=== PATIENT | female | born 1950 | race Caucasian/White ===

== ENCOUNTER 2021-07-12 19:04 | Inpatient (IN) | payer MEDICARE, OTHER ==
[~2021-07-12] VITALS: Ht 160 cm; Wt 41.7 kg
--- NOTE | 2021-07-12 19:15 | NUR ---
PATIENT CAME ONLY WITH 5150 HOLD. NO OTHER PAPER WORKS, SUCH HOME MEDICATION AND HX CAME WITH PATIENT.
--- NOTE | 2021-07-12 19:49 | NUR ---
LAB AT BEDSIDE.
[2021-07-12 20:12] LABS: HEMATOCRIT 37.6 % (31.2-41.9); MEAN CORPUSCULAR HEMOGLOBIN 31.4 uug (24.7-32.8); MEAN CORPUSCULAR VOLUME 89.7 fL (75.5-95.3); PLATELET COUNT (AUTO) 130 K/uL (179-408)
[2021-07-12 20:14] LABS: CREATININE 0.7 mg/dL (0.6-1.3); POTASSIUM 3.5 mmol/L (3.5-5.1)
[2021-07-12 20:20] LABS: BILIRUBIN,DIRECT 0.1 mg/dL (0.0-0.2); TOTAL PROTEIN, SERUM 6.6 g/dL (6.4-8.2)
--- NOTE | 2021-07-12 20:53 | NUR ---
PT AMBULATED TO RESTROOM, ABLE TO FOLLOW COMMANDS. NOTED TO BE CALM AND COOPERATIVE.
[2021-07-12 21:06] LABS: *BILIRUBIN,URIN NEGATIVE (NEGATIVE); *CLARITY,URINE CLEAR (CLEAR); *COLOR,URINE YELLOW (YELLOW); *KETONES,URINE TRACE (NEGATIVE); *UROBILINOGEN,URINE 0.2 E.U./dl (NORMAL); LEUKOCYTE ESTERASE ,URINE 2+ (NEGATIVE); NITRITE, URINE NEGATIVE (NEGATIVE); UGLUCOSE NEGATIVE (NEGATIVE)
[2021-07-12 21:22] LABS: *BLOOD, URINE TRACE (NEGATIVE)
--- NOTE | 2021-07-12 21:40 | NUR ---
GAVE REPORT TO HAYDER SOL.
[2021-07-12] MEDS ORDERED: MAG HYDROX/AL HYDROX/SIMETH 30 ML LIQUID UDC PO PRN (22:30)
[2021-07-12] MEDS ORDERED: MAGNESIUM HYDROXIDE 30 ML LIQUID UDC PO PRN (22:30)
[2021-07-12] MEDS ORDERED: BLOOD SUGAR DIAGNOSTIC 1 EACH STRIP VI ONE (22:30)
[2021-07-12 22:40] LABS: RBC,URINE 0-3 /HPF (0-3); SQUAMOUS EPITHELIAL CELL,UR FEW /HPF (NONE SEEN)
[2021-07-12 22:41] LABS: BACTERIA,URINE FEW /HPF (NONE SEEN)
[2021-07-12 22:45] VITALS: BP 100/27
--- NOTE | 2021-07-12 23:00 | NUR ---
Pt. admitted to MHU , under care of Dr. AMBROCIO AND LIZ Belongs List completed
[2021-07-12 23:08] VITALS: BP 99/32
--- NOTE | 2021-07-12 23:55 | NUR ---
ADMISSION NOTE: AT APPROX. 2250, ADMITTED 71 YEARS OLD FEMALE TO [facility] ON A 5150 HOLD FOR DTS AND GD. PER HOLD, PATIENT LIVES AT HER HOME. SHE WAS OBSERVED BY HER NEIGHBORS THAT SHE WAS STANDING OUTSIDE HER HOME FOR PROLONGED PERIODS OF TIMES OF TIMES REGARDLESS OF THE INCLEMENT WEATHER AND RAIN. SHE WAS OBSERVED WITH ONLY "NIGHT CLOTHES" AND SHE DOES NOT VERBALLY COMMUNICATE. PATIENT HAS A HISTORY OF PREVIOUS PSYCHIATRIC HOSPITALIZATION IN 2015 AND 2019. UPON ADMISSION, PATIENT IS NOT SPEAKING AND NOT ANSWERING ANY QUESTIONS; HOWEVER, SHE DOES FOLLOW DIRECTIONS. FACE TO FACE ASSESSMENT WAS DONE, ADVISEMENT WAS GIVEN, WELL HER BOOKLET FOR PATIENT RIGHTS TO MENTAL HEALTH FACILITIES. PATIENT REFLECTS WHAT IS WRITTEN ON THE HOLD. SHE REFUSED TO ANSWER ANY QUESTIONS AND SHE REMAINED MUTE. SKIN ASSESSMENT DONE. SKIN APPEARS INTACT. PATIENT WAS OFFERED SNACKS AND PO FLUIDS BUT SHE REFUSED. SON JOSE LUIS SHERIDAN WAS CONTACTED VIA PHONE CALL AT [phone]. PER SON, PATIENT IS ABLE TO SPEAK AND UNDERSTAND FLUENT [facility]. HE WAS ASKED TO BRING MEDICATION RECORDS AND MEDICAL HISTORY. HE STATED HE WILL CALL [facility] TO OBTAINED HER MEDICAL RECORDS AND WILL BRING TO UNIT TOMORROW. PATIENT'S HOLD WILL END ON 07/15/21 AT 1445. SHE IS UNDER THE CARE OF DR. AMBROCIO. WILL CONTINUE WITH Q15 MIN CHECKS.
[2021-07-13 07:30] VITALS: BP 90/46
[2021-07-13] MEDS: CEphaleXIN 500 MG CAPSULE PO SCH ×2 (08:20→17:04)
--- NOTE | 2021-07-13 08:27 | NUR ---
Firearms Report Supervisor [employer] completed and submitted a [employer] firearms report for 5150 grave disability certifications and a danger to herself. A copy of report has been placed in patient chart.
[2021-07-13] MEDS: OLANZAPINE ZYDIS 5 MG TAB.RAPDIS PO SCH ×2 (10:27→17:04)
[2021-07-13 11:10] LABS: *AMPHETAMINE, URINE NEGATIVE (NEGATIVE); *CANNABINOID, URINE NEGATIVE (NEGATIVE); *COCCAINE, URINE NEGATIVE (NEGATIVE); *OPIATE, URINE NEGATIVE (NEGATIVE); *PHENCYCLIDINE SCREEN,URINE NEGATIVE (NEGATIVE)
--- NOTE | 2021-07-13 12:01 | NUR ---
MIRYAM Initial Discharge Note Pt currently resides at [address] [place] [id number]. Pt is currently unable to communicate family contact or DPOA contact information, if available, for SW to contact regarding discharge plan. MIRYAM will continue to work with pt, family, and MD to ensure a safe and proper discharge plan.
[2021-07-13 16:00] VITALS: BP 106/34
--- NOTE | 2021-07-13 16:19 | NUR ---
Received patient sleeping in her room. A/O X 3 to person, place. Pt. affect is selective mute, withdrawn, isolative, cooperative. UA was collected this morning and sent to the lab. Compliant with medications. Self care. Continent. Reassurance given. Fall and safety precautions implemented.
[2021-07-13 19:59] VITALS: BP 90/45
[2021-07-13] MEDS: DIVALPROEX 125 MG TABLET.DR PO SCH (20:32)
[2021-07-13] MEDS: LORAZEPAM 1 MG TABLET PO PRN (23:01)
--- NOTE | 2021-07-14 05:04 | NUR ---
At the start of the shift , the patient was sitting on the edge of the bed , refusing to speak or make eye contact with staff. After a few hours ,the patient was willing to to sit in a chair at the station, eat food, drink fluids and took a shower. At that time the patient begun to speak. This patient is forgetful and confused. She believes she was suppose to be going home during the night and repeated this over and over. Frequent reassurance and reorientation were provided. A Front Wheel Walker was given for safety when ambulating. Continuing with the plan of care and providing for her needs. No acute distress at this time. The patient has been medication compliant. Safety Stratiges are in place.
[2021-07-14 07:30] VITALS: BP 104/52
[2021-07-14] MEDS: OLANZAPINE ZYDIS 5 MG TAB.RAPDIS PO SCH ×2 (08:46→16:45)
[2021-07-14] MEDS: DIVALPROEX 125 MG TABLET.DR PO SCH ×2 (08:46→20:06)
[2021-07-14] MEDS: CEphaleXIN 500 MG CAPSULE PO SCH ×2 (08:46→16:45)
[2021-07-14] MEDS: ENSURE ENLIVE (VAN) 240 ML LIQUID PO SCH ×3 (09:49→16:46)
--- NOTE | 2021-07-14 15:26 | NUR ---
Received patient awake in her room. A/OX 3 to person, place. Pt. affect is impulsive, forgetful, demanding, selective mute, was engaging in the conversation this morning, and now is quiet without answering questions. Compliant with medications. Ambulates without assistance. Reassurance provided. Fall and safety precautions implemented.
[2021-07-14 16:00] VITALS: BP 109/48
[2021-07-14 17:57] LABS: THYROID STIMULATING HORMONE 3.303 mIU/mL (0.358-3.740)
[2021-07-14 20:06] VITALS: BP 106/51
[2021-07-14] MEDS: ATORVASTATIN 10 MG TABLET PO SCH (20:07)
--- NOTE | 2021-07-15 02:06 | NUR ---
Received patient in her room, med compliant, interact with nurse, patient concern of going home, poor insight and poor judgement. Patient will remain in a psych facility for further evaluation and treatment.
[2021-07-15 07:30] VITALS: BP 90/61
[2021-07-15] MEDS: CEphaleXIN 500 MG CAPSULE PO SCH ×2 (08:44→17:32)
[2021-07-15] MEDS: DIVALPROEX 125 MG TABLET.DR PO SCH ×2 (08:45→21:32)
[2021-07-15] MEDS: OLANZAPINE ZYDIS 5 MG TAB.RAPDIS PO SCH ×2 (08:45→17:32)
[2021-07-15] MEDS: ENSURE ENLIVE (VAN) 240 ML LIQUID PO SCH ×3 (08:53→17:00)
--- NOTE | 2021-07-15 09:05 | NUR ---
patient refused ensure plus po and refused breakfast.
--- NOTE | 2021-07-15 15:26 | NUR ---
Received patient awake in her room. A/O X 2 -3 to person, place. Pt. affect is withdrawn, isolative, quiet. Ambulates independently. Compliant with medications. Reassurance given. Fall and safety precautions implemented.
[2021-07-15 16:00] VITALS: BP 98/58
[2021-07-15 20:00] VITALS: BP 100/48
[2021-07-15] MEDS: ATORVASTATIN 10 MG TABLET PO SCH (21:32)
[2021-07-15] MEDS: LORAZEPAM 1 MG TABLET PO PRN (21:32)
--- NOTE | 2021-07-16 05:33 | NUR ---
Received this patient sitting at the edge of the bed, refusing to talk. At that time, the patient got angry because the specification writer was not understanding her pantomime and threw a cup of water on the floor. Later in the shift , the patient came to the desk asking to "go to the neighbors house", confused and disoriented. Reorientation and redirection we given to patient at that time. The response was positive. Total sleep hours were 5.30. Safety stratiges are in place.
[2021-07-16 07:30] VITALS: BP 112/72
[2021-07-16] MEDS: ENSURE ENLIVE (VAN) 240 ML LIQUID PO SCH ×3 (08:17→16:20)
[2021-07-16] MEDS: DIVALPROEX 125 MG TABLET.DR PO SCH ×2 (08:17→20:08)
[2021-07-16] MEDS: CEphaleXIN 500 MG CAPSULE PO SCH ×2 (08:17→16:19)
[2021-07-16] MEDS: OLANZAPINE ZYDIS 5 MG TAB.RAPDIS PO SCH ×2 (08:17→16:20)
[2021-07-16 09:32] LABS: HEMATOCRIT 37.5 % (31.2-41.9); MEAN CORPUSCULAR VOLUME 90.8 fL (75.5-95.3); PLATELET COUNT (AUTO) 152 K/uL (179-408)
[2021-07-16 09:47] LABS: POTASSIUM 3.3 mmol/L (3.5-5.1)
[2021-07-16 09:48] LABS: CREATININE 0.6 mg/dL (0.6-1.3); MAGNESIUM 1.9 mg/dL (1.8-2.4)
[2021-07-16] MEDS ORDERED: POTASSIUM CHLORIDE 20 MEQ TAB.PRT.SR PO ONE (15:00)
[2021-07-16 17:01] VITALS: BP 108/58
[2021-07-16 20:00] VITALS: BP 92/64
[2021-07-16] MEDS: ATORVASTATIN 10 MG TABLET PO SCH (20:08)
[2021-07-16] MEDS: LORAZEPAM 1 MG TABLET PO PRN (20:08)
[2021-07-17 07:30] VITALS: BP 95/54
[2021-07-17] MEDS: DIVALPROEX 125 MG TABLET.DR PO SCH ×2 (08:02→20:26)
[2021-07-17] MEDS: CEphaleXIN 500 MG CAPSULE PO SCH ×2 (08:02→16:03)
[2021-07-17] MEDS: OLANZAPINE ZYDIS 5 MG TAB.RAPDIS PO SCH ×3 (08:02→16:03)
[2021-07-17] MEDS: ENSURE ENLIVE (VAN) 240 ML LIQUID PO SCH ×3 (08:02→16:03)
[2021-07-17 16:00] VITALS: BP 102/44
[2021-07-17 20:00] VITALS: BP 103/51
[2021-07-17] MEDS: ATORVASTATIN 10 MG TABLET PO SCH (20:26)
[2021-07-18 07:43] VITALS: BP 90/47
[2021-07-18] MEDS: DIVALPROEX 125 MG TABLET.DR PO SCH ×2 (08:38→20:38)
[2021-07-18] MEDS: ENSURE ENLIVE (VAN) 240 ML LIQUID PO SCH ×3 (08:38→16:28)
[2021-07-18] MEDS: OLANZAPINE ZYDIS 5 MG TAB.RAPDIS PO SCH ×2 (08:38→16:28)
[2021-07-18 15:48] VITALS: BP 93/42
[2021-07-18 20:10] VITALS: BP 92/55
[2021-07-18] MEDS: ATORVASTATIN 10 MG TABLET PO SCH (20:38)
[2021-07-19 07:42] VITALS: BP 90/52
[2021-07-19] MEDS: ENSURE ENLIVE (VAN) 240 ML LIQUID PO SCH ×3 (09:00→16:54)
[2021-07-19] MEDS: DIVALPROEX 125 MG TABLET.DR PO SCH ×3 (09:04→16:54)
[2021-07-19] MEDS: OLANZAPINE ZYDIS 5 MG TAB.RAPDIS PO SCH ×2 (09:05→16:54)
[2021-07-19 15:42] VITALS: BP 85/45
[2021-07-19 20:00] VITALS: BP 91/51
[2021-07-19] MEDS: ATORVASTATIN 10 MG TABLET PO SCH (20:24)
--- NOTE | 2021-07-20 06:03 | NUR ---
GPS: Remain calm ,isolative but cooperative with meds and care. slept 8 hrs through the night.
[2021-07-20] MEDS: ENSURE ENLIVE (VAN) 240 ML LIQUID PO SCH ×3 (09:00→16:37)
[2021-07-20 09:30] VITALS: BP 90/56
[2021-07-20] MEDS: OLANZAPINE ZYDIS 5 MG TAB.RAPDIS PO SCH ×2 (10:40→16:38)
[2021-07-20] MEDS: DIVALPROEX 125 MG TABLET.DR PO SCH ×3 (10:40→16:37)
[2021-07-20 17:56] VITALS: BP 119/62
[2021-07-20 19:53] VITALS: BP 102/54
[2021-07-20] MEDS: ATORVASTATIN 10 MG TABLET PO SCH (20:57)
[2021-07-20] MEDS: ZOLPIDEM 5 MG TABLET PO PRN (20:57)
[2021-07-21 07:30] VITALS: BP 128/50
[2021-07-21 08:52] LABS: HEMATOCRIT 36.3 % (31.2-41.9); MEAN CORPUSCULAR VOLUME 91.5 fL (75.5-95.3); PLATELET COUNT (AUTO) 140 K/uL (179-408)
[2021-07-21 09:10] LABS: CREATININE 0.7 mg/dL (0.6-1.3); MAGNESIUM 1.7 mg/dL (1.8-2.4); PHOSPHOROUS 3.1 mg/dL (2.5-4.9); POTASSIUM 3.8 mmol/L (3.5-5.1)
[2021-07-21] MEDS: OLANZAPINE ZYDIS 5 MG TAB.RAPDIS PO SCH ×2 (09:16→17:05)
[2021-07-21] MEDS: ENSURE ENLIVE (VAN) 240 ML LIQUID PO SCH ×3 (09:16→17:05)
[2021-07-21] MEDS: DIVALPROEX 125 MG TABLET.DR PO SCH ×3 (09:16→17:05)
--- NOTE | 2021-07-21 13:29 | NUR ---
SW Contact Note: MIRYAM contacted Dr. Saurabh Neumann and discussed discharge plan for the pt. Saurabh stated pt will be returning home and transportation will be provided by either Saurabh or [place] upon discharge.
[2021-07-21 16:00] VITALS: BP 140/68
[2021-07-21 16:20] LABS: NEUTROPHILS % (MANUAL) 57 % (42-75)
[2021-07-21 16:21] LABS: LYMPHOCYTES % (MANUAL) 25 % (20-40); MONOCYTES % (MANUAL) 18 % (2-10)
--- NOTE | 2021-07-21 17:38 | NUR ---
GPS: PT ALERT AND VERBALLY RESPONSIVE. PT ISOLATING HERSELF IN THE ROOM. DOES NOT LIKE INTERACTING WITH OTHERS. PT COMPLIANT WITH MEDS AND COOPERATIVE WITH CARE. DENIES ANY PAIN OR DISCOMFORT. DURING LUNCH TIME, PT DID NOT TOUCH THE FOOD. ENCOURAGED TO INCREASE FOOD AND FLUID INTAKE.
[2021-07-21 20:00] VITALS: BP 116/58
[2021-07-21] MEDS: ATORVASTATIN 10 MG TABLET PO SCH (21:32)
[2021-07-21] MEDS: ZOLPIDEM 5 MG TABLET PO PRN (21:33)
--- NOTE | 2021-07-21 22:30 | NUR ---
NSG/GPS Patient offered tylenol and refused however did request a sleeping pill as well as a prn for anxiety. Complained of a sore throat as she stated "I don't want anything".
[2021-07-21] MEDS: LORAZEPAM 1 MG TABLET PO PRN (23:42)
[2021-07-22 07:30] VITALS: BP 96/75
[2021-07-22] MEDS: ACETAMINOPHEN 325 MG TABLET PO PRN ×2 (07:54→16:02)
--- NOTE | 2021-07-22 08:06 | NUR ---
GPS: UPON GETTING VITAL SIGNS FOR PT, PT NOTED WITH FEVER, TEMP 100.5F BP 96/75 HR 129 R18 O2SAT 97% RA. PT GIVEN TYLENOL 650MG PO. PT STATED HAVING PAIN/ SORE THROAT. DR AMBROCIO ON THE FLOOR AND ORDERED COVID TEST AND DR MOHR MADE AWARE. WILL MONITOR PT.
[2021-07-22] MEDS: DIVALPROEX 125 MG TABLET.DR PO SCH ×3 (09:32→18:05)
[2021-07-22] MEDS: ENSURE ENLIVE (VAN) 240 ML LIQUID PO SCH ×3 (09:32→17:00)
[2021-07-22] MEDS: OLANZAPINE ZYDIS 5 MG TAB.RAPDIS PO SCH ×2 (09:32→18:05)
--- NOTE | 2021-07-22 09:45 | NUR ---
GPS: RCEEIVED REPORT FROM LAB, PT IS POSITIVE WITH COVID ANTIGEN TEST. INFORMED PT ABOUT THE RESULT AND GIVEN SURGICAL MASK. REPORTED TO MISSY SARAVIA AND YAJAIRA. PER MISSY, TO TRANSFER PT TO MED SURG UNIT. WILL WAIT FOR FURTHER INSTRUCTION FROM DR GASTELUM. PT IS ISOLATED IN HER ROOM.
--- NOTE | 2021-07-22 10:30 | NUR ---
Gps/Information Systems Security Developer- Dr Lm Solares was called and informed patient tested positive for covid this am , and informed of the fever and increased coughing and sore throat. Orders received to discharged patient to Medical floor, for higher level of care , will put order as soon as patient gets to Medical floor . Nursing Whip Operator Robyn was informed. Patient was well informed, awaiting for room (3rd floor)
[2021-07-22 16:00] VITALS: BP 90/46
--- NOTE | 2021-07-22 18:54 | NUR ---
GPS: PT ON BED ISOLATED ON HER ROOM DUE TO COVID POSITIVE. ALERT AND VERBALLY RESPONSIVE, DENIES SHORTNESS OF BREATH. UPON V/S PT BP 76/38 T 100F HR 85 R 18 O2SAT 99%. PT COMPLAINT OF SORE THROAT AND PAINFUL WHEN SWALLOWING. CALLED NURSING PATIENT SERVICE TECHNICIAN PST ADIN INQUIRING FOR AVAILABLE MED SURG ROOM, PER PATIENT SERVICE TECHNICIAN PST, NO AVAILABLE ROOM OF NOW. PT DENIES ANY WEAKNESS. WILL MONITOR PT. CALLED [facility] FOR REPORT, WAITING FOR A CALLBACK FROM KALI GATES.
[2021-07-22 20:00] VITALS: BP 76/47
[2021-07-22] MEDS: ATORVASTATIN 10 MG TABLET PO SCH (21:06)
[2021-07-22] MEDS: LORAZEPAM 1 MG TABLET PO PRN (21:06)
[2021-07-22] MEDS: ZOLPIDEM 5 MG TABLET PO PRN (22:30)
--- NOTE | 2021-07-23 03:02 | NUR ---
NSG/GPS Patient transferred to ER temporarily for positive COVID test until a bed becomes available.
--- NOTE | 2021-07-23 09:42 | NUR ---
SW Transfer: Pt was transferred to [facility]. Dr. Machado is aware. Per pt son Saurabh ([facility]) , pt will be returning home. Per Saurabh, transportation will be provided by himself or [place] ([phone]).
[2021-07-29] MEDS ORDERED: DEXA6TAB6 PO (11:43)
[2021-07-29] MEDS ORDERED: DIVA125T2 PO (11:43)
[2021-07-29] MEDS ORDERED: OLAN5TAB3 PO (11:43)
== END 2021-07-23 03:02 | disposition short-term general hospital (02) | DRG 885 ==
LOC: ER 19:12 → GPS 22:26 → OBSER 07-23 01:45 → GPS 07-23 01:45
PROVIDERS: ADMIT Psychiatry & Neurology Psychiatry; ATTEND Internal Medicine
DX: F31.64 Bipolar disorder, current episode mixed, severe, with psychotic features (principal); U07.1 COVID-19; J12.82 Pneumonia due to coronavirus disease 2019; N39.0 Urinary tract infection, site not specified; Z68.1 Body mass index [BMI] 19.9 or less, adult; E44.1 Mild protein-calorie malnutrition; D69.6 Thrombocytopenia, unspecified; E78.5 Hyperlipidemia, unspecified; F41.9 Anxiety disorder, unspecified; R62.7 Adult failure to thrive; I10 Essential (primary) hypertension; Z91.19 Patient's noncompliance with other medical treatment and regimen
CPT/HCPCS: 36415; 70030-TC; 71045; 80164; 83735; 84100; 84443; 84481; 85025; 87086; 93005; A4663; C1758; G0378

== ENCOUNTER 2021-07-23 01:03 | Inpatient (IN) | payer MEDICARE, OTHER ==
[~2021-07-23] VITALS: Ht 165.1 cm; Wt 61.2 kg
--- NOTE | 2021-07-23 07:45 | NUR ---
CALLED IMPLEMENTATION SPECIALIST PAYROLL ADIN REQUEST 1:1 SITTER NONE AVAILABLE AT THIS TIME.
[2021-07-23] MEDS ORDERED: ACETAMINOPHEN 325 MG TABLET PO PRN (10:45)
[2021-07-23] MEDS ORDERED: ONDANSETRON 4 MG/2 ML VIAL IV PRN (10:45)
--- NOTE | 2021-07-23 10:45 | NUR ---
Pt. admitted to [facility] , under care of Dr. Solares
--- NOTE | 2021-07-23 10:50 | NUR ---
admitted patient from ER, report given by Saurabh. arrived via gurney. saturating at 90-91%, kept on o2 at 2L with saturation at 96%. Febrile at 102.9, Tylenol given as ordered. Cooling measures provided. Not in any distress. Oriented patient to the room. Will continue to monitor.
[2021-07-23 11:07] LABS: HEMATOCRIT 36.8 % (31.2-41.9); MEAN CORPUSCULAR HEMOGLOBIN 31.3 uug (24.7-32.8); MEAN CORPUSCULAR VOLUME 91.3 fL (75.5-95.3); PLATELET COUNT (AUTO) 121 K/uL (179-408)
[2021-07-23 11:19] LABS: BILIRUBIN,TOTAL 0.4 mg/dL (0.2-1.0); CREATININE 1.1 mg/dL (0.6-1.3); MAGNESIUM 1.9 mg/dL (1.8-2.4); PHOSPHOROUS 2.5 mg/dL (2.5-4.9); POTASSIUM 3.6 mmol/L (3.5-5.1); TOTAL PROTEIN, SERUM 6.2 g/dL (6.4-8.2)
[2021-07-23 11:50] VITALS: BP 104/49
[2021-07-23] MEDS: ENOXAPARIN SODIUM 40 MG/0.4 ML DISP.SYRIN SQ SCH (12:58)
[2021-07-23] MEDS ORDERED: DIVALPROEX 500 MG TABLET.DR PO SCH (13:00)
[2021-07-23] MEDS: DEXAMETHASONE SOD PHOSPHATE 4 MG INJ IV SCH (13:01)
--- NOTE | 2021-07-23 14:56 | NUR ---
UA sample sent to the lab as ordered. will continue to monitor.
[2021-07-23 15:54] VITALS: BP 66/34
[2021-07-23 16:08] LABS: *BILIRUBIN,URIN NEGATIVE (NEGATIVE); *CLARITY,URINE CLEAR (CLEAR); *COLOR,URINE YELLOW (YELLOW); *KETONES,URINE 1+ (NEGATIVE); *UROBILINOGEN,URINE 0.2 E.U./dl (NORMAL); LEUKOCYTE ESTERASE ,URINE NEGATIVE (NEGATIVE); NITRITE, URINE NEGATIVE (NEGATIVE); UGLUCOSE NEGATIVE (NEGATIVE)
[2021-07-23 16:18] LABS: *BLOOD, URINE TRACE (NEGATIVE)
[2021-07-23] MEDS: ENSURE ENLIVE (VAN) 240 ML LIQUID PO SCH (16:42)
[2021-07-23] MEDS: OLANZAPINE ZYDIS 5 MG TAB.RAPDIS PO SCH (16:42)
[2021-07-23] MEDS: DIVALPROEX 125 MG TABLET.DR PO SCH (16:42)
[2021-07-23] MEDS ORDERED: REMDESIVIR (CHARGED) 200 MG in IV NORMAL SALINE 210 ML IV ONE (18:00)
[2021-07-23 18:31] LABS: MUCUS,URINE FEW /LPF (0-FEW); SQUAMOUS EPITHELIAL CELL,UR MODERATE /HPF (NONE SEEN)
[2021-07-23 18:32] LABS: BACTERIA,URINE NONE SEEN /HPF (NONE SEEN)
[2021-07-23] MEDS: IV NS 1000 ML 1,000 ML IV PRN (18:38)
--- NOTE | 2021-07-23 18:49 | NUR ---
patient bp reading is 90/50 the latest. Concepcion is aware and started IV fluids. Noted with weakness, able to eat on her own. No distress identified, no pain reported. Maintained safety measures. Kept call light within reach. No other concern identified. Will continue to monitor for continuity of care.
[2021-07-23 18:51] VITALS: BP 90/50
--- NOTE | 2021-07-23 19:30 | NUR ---
Patient in bed, AAO to person, place and situation. Able to make needs known. Denies any pain or discomfort. On 1 L 02 via NC, 02 sats 95%. No SOB or coughing noted. Left wrist 20 gauge patent and intact, currently infusing Remdesivir . No Adverse reactions noted. Patient able to ambulate to restroom with SBA. Safety measures initiated. Call light within reach.
[2021-07-23 21:04] VITALS: BP 106/52
[2021-07-23] MEDS ORDERED: CEFTRIAXONE /D5W 50ML IVPB **ER PYXIS IV ONE (22:36)
[2021-07-23] MEDS: CEFTRIAXONE 1 G in IV DEXTROSE 5% 50 ML IV SCH (23:07)
[2021-07-24 04:20] VITALS: BP 91/45
--- NOTE | 2021-07-24 05:47 | NUR ---
Patient slept well for remainder of shift. No significant events noted. Call light within reach. COVID isolation continued. Call light within reach.
--- NOTE | 2021-07-24 07:15 | NUR ---
Patient resting in bed. On 1L O2 via NC. No signs of acute distress. IV access on left wrist #20 intact and patent. Will continue to monitor.
[2021-07-24] MEDS: DEXAMETHASONE SOD PHOSPHATE 4 MG INJ IV SCH (08:46)
[2021-07-24] MEDS: DIVALPROEX 125 MG TABLET.DR PO SCH ×3 (08:46→16:10)
[2021-07-24] MEDS: OLANZAPINE ZYDIS 5 MG TAB.RAPDIS PO SCH ×2 (08:46→16:11)
[2021-07-24 08:49] LABS: HEMATOCRIT 34.7 % (31.2-41.9); MEAN CORPUSCULAR HEMOGLOBIN 31.4 uug (24.7-32.8); MEAN CORPUSCULAR VOLUME 89.9 fL (75.5-95.3); PLATELET COUNT (AUTO) 100 K/uL (179-408)
[2021-07-24] MEDS: ENOXAPARIN SODIUM 40 MG/0.4 ML DISP.SYRIN SQ SCH (08:50)
[2021-07-24] MEDS: ENSURE ENLIVE (VAN) 240 ML LIQUID PO SCH ×3 (08:51→16:11)
[2021-07-24 09:30] LABS: CREATININE 0.6 mg/dL (0.6-1.3); MAGNESIUM 2.1 mg/dL (1.8-2.4); POTASSIUM 3.2 mmol/L (3.5-5.1)
[2021-07-24 10:31] LABS: BILIRUBIN,DIRECT 0.1 mg/dL (0.0-0.2); BILIRUBIN,TOTAL 0.3 mg/dL (0.2-1.0); TOTAL PROTEIN, SERUM 5.7 g/dL (6.4-8.2)
[2021-07-24] MEDS: AZITHROMYCIN 250 MG TABLET PO SCH (11:09)
[2021-07-24 12:37] VITALS: BP 108/72
[2021-07-24] MEDS ORDERED: POTASSIUM CHLORIDE 20 MEQ TAB.PRT.SR PO ONE (16:00)
[2021-07-24] MEDS ORDERED: NEUTRA PHOS PACKET PO ONE (16:00)
[2021-07-24] MEDS: REMDESIVIR (CHARGED) 100 MG in IV NORMAL SALINE 100 ML IV SCH (17:48)
--- NOTE | 2021-07-24 18:21 | NUR ---
Patient resting in bed. AOx3-4. On room air. No signs of acute distress. Patient denies pain/ discomfort. Patient denies SOB/ . Afebrile. IV access patent and intact, NS running at 40cc/hr. Compliant with medications and care. Needs anticipated and met. Will endorse to incoming shift for continuity of care.
[2021-07-24 20:00] VITALS: BP 87/40
[2021-07-24] MEDS: CEFTRIAXONE 1 G in IV DEXTROSE 5% 50 ML IV SCH (20:39)
[2021-07-25] MEDS: IV NS 1000 ML 1,000 ML IV PRN (00:51)
--- NOTE | 2021-07-25 04:07 | NUR ---
Received patient in bed, AAO x4. Able to make needs known. Denies any pain or discomfort. On RA, no SOB noted, occasional soft dry cough noted. Left wrist IV 20 gauge patent and intact, flushed with saline. IV fluids NS at 40cc/hr. Patient able to ambulate to restroom with SBA. Safety measures initiated. Call light within reach.
[2021-07-25 04:55] VITALS: BP 91/45
--- NOTE | 2021-07-25 05:45 | NUR ---
Patient slept well this shift. No c/o pain. Noted with occasional dry/ soft cough. On telemetry, NSR. No significant events noted. Call light within reach. COVID isolation continued. Call light within reach. Addendum: 07/26/21 at 0551 by EDDIE THAKKAR RN Patient not on Telemetry. Incorrect patient telemetry note.
--- NOTE | 2021-07-25 06:00 | NUR ---
FIREPERSON diagnostic medical sonographer, Roni, made aware of continued hypotension. No new orders at this time.
--- NOTE | 2021-07-25 07:20 | NUR ---
Received patient resting in bed. AOx4. On room air. No signs of acute distress. IV access patent and intact. Bed alarm on. Call light within reach. Will continue to monitor.
[2021-07-25 08:29] LABS: BILIRUBIN,DIRECT 0.1 mg/dL (0.0-0.2); BILIRUBIN,TOTAL 0.2 mg/dL (0.2-1.0); CREATININE 0.5 mg/dL (0.6-1.3); TOTAL PROTEIN, SERUM 5.5 g/dL (6.4-8.2)
[2021-07-25 08:36] LABS: HEMATOCRIT 31.6 % (31.2-41.9); MEAN CORPUSCULAR HEMOGLOBIN 31.8 uug (24.7-32.8); MEAN CORPUSCULAR VOLUME 90.1 fL (75.5-95.3); PLATELET COUNT (AUTO) 119 K/uL (179-408)
[2021-07-25 08:37] LABS: MAGNESIUM 2.2 mg/dL (1.8-2.4); PHOSPHOROUS 2.5 mg/dL (2.5-4.9)
[2021-07-25] MEDS: OLANZAPINE ZYDIS 5 MG TAB.RAPDIS PO SCH ×2 (08:47→17:20)
[2021-07-25] MEDS: DIVALPROEX 125 MG TABLET.DR PO SCH ×3 (08:47→17:20)
[2021-07-25] MEDS: ENSURE ENLIVE (VAN) 240 ML LIQUID PO SCH ×3 (08:48→17:21)
[2021-07-25] MEDS: DEXAMETHASONE SOD PHOSPHATE 4 MG INJ IV SCH (08:48)
[2021-07-25] MEDS: ENOXAPARIN SODIUM 40 MG/0.4 ML DISP.SYRIN SQ SCH (08:50)
[2021-07-25 11:06] VITALS: BP 97/56
[2021-07-25 11:36] VITALS: BP 97/56
[2021-07-25] MEDS: AZITHROMYCIN 250 MG TABLET PO SCH (11:52)
[2021-07-25 15:09] VITALS: BP 99/54
[2021-07-25] MEDS: REMDESIVIR (CHARGED) 100 MG in IV NORMAL SALINE 100 ML IV SCH (17:54)
--- NOTE | 2021-07-25 19:37 | NUR ---
Patient AAO x4. Able to make needs known. Denies any pain or discomfort. On RA, no SOB noted, occasional soft dry cough noted. Left wrist IV 20 gauge patent and intact, flushed with saline. Infusing IV fluids NS at 40cc/hr. Safety measures initiated. Call light within reach.
[2021-07-25] MEDS: CEFTRIAXONE 1 G in IV DEXTROSE 5% 50 ML IV SCH (20:14)
[2021-07-25 20:44] VITALS: BP 92/45
[2021-07-26] MEDS: IV NS 1000 ML 1,000 ML IV PRN (04:12)
[2021-07-26 04:20] VITALS: BP 96/51
--- NOTE | 2021-07-26 05:47 | NUR ---
Slept well this shift. AAO x4, no c/o pain. On RA, No SOB. Rare occasional dry cough noted. No significant events noted. COVID isolation continued. Call light within reach.
[2021-07-26 07:10] LABS: HEMATOCRIT 30.9 % (31.2-41.9); MEAN CORPUSCULAR HEMOGLOBIN 31.9 uug (24.7-32.8); MEAN CORPUSCULAR VOLUME 91.5 fL (75.5-95.3); PLATELET COUNT (AUTO) 128 K/uL (179-408)
[2021-07-26 07:19] LABS: BILIRUBIN,DIRECT 0.1 mg/dL (0.0-0.2); BILIRUBIN,TOTAL 0.1 mg/dL (0.2-1.0); CREATININE 0.5 mg/dL (0.6-1.3); POTASSIUM 3.9 mmol/L (3.5-5.1)
[2021-07-26 08:19] LABS: MAGNESIUM 1.9 mg/dL (1.8-2.4); PHOSPHOROUS 2.9 mg/dL (2.5-4.9)
[2021-07-26] MEDS: DIVALPROEX 125 MG TABLET.DR PO SCH ×3 (09:32→17:35)
[2021-07-26] MEDS: OLANZAPINE ZYDIS 5 MG TAB.RAPDIS PO SCH ×2 (09:33→17:35)
[2021-07-26] MEDS: DEXAMETHASONE SOD PHOSPHATE 4 MG INJ IV SCH (09:33)
[2021-07-26] MEDS: ENSURE ENLIVE (VAN) 240 ML LIQUID PO SCH ×3 (09:35→17:35)
[2021-07-26] MEDS: ENOXAPARIN SODIUM 40 MG/0.4 ML DISP.SYRIN SQ SCH (09:39)
[2021-07-26] MEDS: ALBUMIN HUMAN 25% 100 ML IV SCH ×3 (09:55→19:33)
[2021-07-26] MEDS: AZITHROMYCIN 250 MG TABLET PO SCH (09:56)
--- NOTE | 2021-07-26 11:00 | NUR ---
ORDER FOR ALBUMIN RECEIVED AND IN PROGRESS ORDERED.
[2021-07-26 11:26] VITALS: BP 108/53
--- NOTE | 2021-07-26 14:00 | NUR ---
DR LYN HERE AND SEEN PATIENT WAS NOTIFIED RE BLOOD PRESSURE THAT IS ON THE LOW SIDE EVEN THOUGH THE HOSPITALIST IS AWARE STATED WILL SEE PATIENT AND WILL SEE WHAT HE CAN DO
[2021-07-26 15:15] VITALS: BP 97/54
--- NOTE | 2021-07-26 16:35 | NUR ---
MID LINE INSERTED TO HER RIGHT UPPER ARM ORDERED FLUSHED PER PROTOCOL
[2021-07-26] MEDS: REMDESIVIR (CHARGED) 100 MG in IV NORMAL SALINE 100 ML IV SCH (18:08)
--- NOTE | 2021-07-26 18:08 | NUR ---
REMDESIVIR STARTED ORDERED AND TOLERATED WELL
--- NOTE | 2021-07-26 19:10 | NUR ---
REMZEDIVIR COMPLETED ORDERED WITH NO ADVERSE OR ALLERGIC REACTIONS AT THIS TIME.
[2021-07-26 20:06] VITALS: BP 101/60
--- NOTE | 2021-07-26 21:01 | NUR ---
Patient Awake alert and able to make needs known.On RA.No s/s of distress noted. Midline on right upper arm patent and intact. Adm IV ATB As ordered. No A/R noted.Call light with in reach.Will continue to monitor.
[2021-07-26] MEDS: CEFTRIAXONE 1 G in IV DEXTROSE 5% 50 ML IV SCH (21:06)
[2021-07-27] MEDS: ALBUMIN HUMAN 25% 100 ML IV SCH (00:22)
[2021-07-27 04:06] VITALS: BP 132/63
[2021-07-27] MEDS: IV NS 1000 ML 1,000 ML IV PRN (06:17)
[2021-07-27 07:24] LABS: HEMATOCRIT 28.7 % (31.2-41.9); MEAN CORPUSCULAR HEMOGLOBIN 31.3 uug (24.7-32.8); MEAN CORPUSCULAR VOLUME 91.4 fL (75.5-95.3); PLATELET COUNT (AUTO) 122 K/uL (179-408)
[2021-07-27 07:38] LABS: BILIRUBIN,DIRECT 0.1 mg/dL (0.0-0.2); BILIRUBIN,TOTAL 0.2 mg/dL (0.2-1.0); CREATININE 0.5 mg/dL (0.6-1.3); MAGNESIUM 2.1 mg/dL (1.8-2.4); POTASSIUM 3.3 mmol/L (3.5-5.1); TOTAL PROTEIN, SERUM 5.8 g/dL (6.4-8.2)
[2021-07-27] MEDS ORDERED: POTASSIUM CHLORIDE 20 MEQ TAB.PRT.SR PO ONE (09:15)
[2021-07-27] MEDS: DIVALPROEX 125 MG TABLET.DR PO SCH ×3 (09:25→17:13)
[2021-07-27] MEDS: OLANZAPINE ZYDIS 5 MG TAB.RAPDIS PO SCH ×2 (09:25→17:13)
[2021-07-27] MEDS: DEXAMETHASONE SOD PHOSPHATE 4 MG INJ IV SCH (09:25)
[2021-07-27] MEDS: ENSURE ENLIVE (VAN) 240 ML LIQUID PO SCH ×3 (09:29→17:14)
[2021-07-27] MEDS: ENOXAPARIN SODIUM 40 MG/0.4 ML DISP.SYRIN SQ SCH (09:31)
[2021-07-27] MEDS: AZITHROMYCIN 250 MG TABLET PO SCH (11:27)
[2021-07-27 12:00] VITALS: BP 95/44
[2021-07-27 16:00] VITALS: BP 102/51
[2021-07-27] MEDS: REMDESIVIR (CHARGED) 100 MG in IV NORMAL SALINE 100 ML IV SCH (18:02)
--- NOTE | 2021-07-27 18:30 | NUR ---
Remdizivir given, patient tolerated well. Will continue to monitor.
--- NOTE | 2021-07-27 19:02 | NUR ---
Patient was compliant with medication medication. She was calm and cooperative. All medications given as ordered. No sign of distress noted. Safety measures are in place. Will endorse to oncoming nurse.
--- NOTE | 2021-07-27 19:35 | NUR ---
Received pt resting in bed. AO x4. Able to state needs. On room air saturating at 96%. JAMES midline intact and running NS at 40 mls/hr. No signs of acute distress noted. Call lights and belongings within reach. Safety measures initiated.
[2021-07-27 20:00] VITALS: BP 99/46
[2021-07-27] MEDS: CEFTRIAXONE 1 G in IV DEXTROSE 5% 50 ML IV SCH (20:39)
[2021-07-28 04:00] VITALS: BP 103/50
--- NOTE | 2021-07-28 06:18 | NUR ---
Slept well throughout the night. No signs of acute distress. JAMES midline running NS 40mls/hr, tolerating. Ceftriazone abx given. No complaints at this time. Call lights within reach, safety measures maintained. Needs have been met. Will endorse to am shift.
[2021-07-28 07:58] LABS: CREATININE 0.6 mg/dL (0.6-1.3); POTASSIUM 3.7 mmol/L (3.5-5.1)
[2021-07-28] MEDS: DIVALPROEX 125 MG TABLET.DR PO SCH ×3 (09:58→17:02)
[2021-07-28] MEDS: ENSURE ENLIVE (VAN) 240 ML LIQUID PO SCH ×3 (09:58→17:02)
[2021-07-28] MEDS: DEXAMETHASONE SOD PHOSPHATE 4 MG INJ IV SCH (09:58)
[2021-07-28] MEDS: OLANZAPINE ZYDIS 5 MG TAB.RAPDIS PO SCH ×2 (09:58→17:02)
[2021-07-28] MEDS: AZITHROMYCIN 250 MG TABLET PO SCH (10:00)
[2021-07-28] MEDS: ENOXAPARIN SODIUM 40 MG/0.4 ML DISP.SYRIN SQ SCH (10:00)
[2021-07-28] MEDS: IV NS 1000 ML 1,000 ML IV PRN (10:12)
[2021-07-28 12:00] VITALS: BP 123/76
[2021-07-28 16:00] VITALS: BP 95/45
--- NOTE | 2021-07-28 19:35 | NUR ---
Pt resting in bed. AO x 4. On room air saturating at 99%. JAMES midline intact. Pt is refusing NS 40mls/hr. Educated pt on benefits and risks of NS 0.9% IV hydration. Verbalizes understanding but continues to refuse. No acute distress noted. Call lights within reach. Safety measures initiated.
[2021-07-28 20:16] VITALS: BP 91/46
[2021-07-29 04:00] VITALS: BP 92/46
[2021-07-29 06:38] LABS: MEAN CORPUSCULAR VOLUME 91.8 fL (75.5-95.3); PLATELET COUNT (AUTO) 231 K/uL (179-408)
--- NOTE | 2021-07-29 06:50 | NUR ---
Slept through the night. AO x 4. On room air saturating at 95%. JAMES midline intact and patent. Heplock. Continued to educate pt on importance of IV hydration, continue to refuse IV fluids. Encouraged PO intake. Able to make needs known. No signs of acute distress. Call lights within reach, safety measures maintained. Will endorse to am shift.
[2021-07-29 07:22] LABS: BILIRUBIN,DIRECT 0.1 mg/dL (0.0-0.2); BILIRUBIN,TOTAL 0.3 mg/dL (0.2-1.0); CREATININE 0.6 mg/dL (0.6-1.3); MAGNESIUM 2.2 mg/dL (1.8-2.4); PHOSPHOROUS 3.1 mg/dL (2.5-4.9); POTASSIUM 3.5 mmol/L (3.5-5.1); TOTAL PROTEIN, SERUM 5.4 g/dL (6.4-8.2)
--- NOTE | 2021-07-29 09:00 | NUR ---
Received PT resting in bed AO x 4. On room air saturating at 96%. JAMES midline intact and patent. Heplock. Continued to educate pt on importance of IV hydration, continue to refuse IV fluids. Encouraged PO intake. Able to make needs known. No signs of acute distress. Call lights within reach, safety measures maintained. Will continue to monitor .
[2021-07-29] MEDS: OLANZAPINE ZYDIS 5 MG TAB.RAPDIS PO SCH ×2 (09:24→17:08)
[2021-07-29] MEDS: DEXAMETHASONE SOD PHOSPHATE 4 MG INJ IV SCH (09:24)
[2021-07-29] MEDS: DIVALPROEX 125 MG TABLET.DR PO SCH ×3 (09:24→17:08)
[2021-07-29] MEDS: ENSURE ENLIVE (VAN) 240 ML LIQUID PO SCH ×3 (09:25→17:09)
[2021-07-29] MEDS: ENOXAPARIN SODIUM 40 MG/0.4 ML DISP.SYRIN SQ SCH (09:30)
[2021-07-29] MEDS ORDERED: OLAN5TAB3 PO (11:43)
[2021-07-29] MEDS ORDERED: DEXA6TAB6 PO (11:43)
[2021-07-29] MEDS ORDERED: DIVA125T2 PO (11:43)
[2021-07-29 12:15] VITALS: BP 90/42
[2021-07-29 16:00] VITALS: BP 93/36
--- NOTE | 2021-07-29 17:20 | NUR ---
Pt was discharge home accompany by her son Saurabh all discharge instructions and belonging given to patient and son , they verbalized understanding. ID Band and IV site removed no bleeding no S/S of complication noted PT was able to ambulate with stable gate
== END 2021-07-29 18:15 | disposition home or self-care (01) | DRG 177 ==
LOC: ER 01:05 → MEDSURG3 08:25
PROVIDERS: ADMIT Registered Nurse; ATTEND Nurse Practitioner Family
PROC: XW033E5 Introduction of Remdesivir Anti-infective into Peripheral Vein, Percutaneous Approach, New Technology Group 5 (ICD-10-PCS; principal; 2021-07-23)
PROC: 05H633Z Insertion of Infusion Device into Left Subclavian Vein, Percutaneous Approach (ICD-10-PCS; 2021-07-26)
PROC: B547ZZA Ultrasonography of Left Subclavian Vein, Guidance (ICD-10-PCS; 2021-07-26)
DX: U07.1 COVID-19 (principal); J12.82 Pneumonia due to coronavirus disease 2019; J96.01 Acute respiratory failure with hypoxia; J15.9 Unspecified bacterial pneumonia; N17.9 Acute kidney failure, unspecified; F31.64 Bipolar disorder, current episode mixed, severe, with psychotic features; N39.0 Urinary tract infection, site not specified; E88.09 Other disorders of plasma-protein metabolism, not elsewhere classified; F41.9 Anxiety disorder, unspecified; I10 Essential (primary) hypertension; R62.7 Adult failure to thrive; Z91.19 Patient's noncompliance with other medical treatment and regimen; I95.9 Hypotension, unspecified; Z73.6 Limitation of activities due to disability; Z68.22 Body mass index [BMI] 22.0-22.9, adult
CPT/HCPCS: 36415; 71045; 83615; 83735; 84100; 85025; 85610; 85730; 86140; 87040; 87086; A4663; G0378; J0696; J1100; J1650; J3490; J7030; J7040; J7050; J7060; P9047; Q0144